=== PATIENT | male | born 1980 | race Caucasian/White ===

== ENCOUNTER 2017-01-20 21:55 | Emergency (ER) | payer BC ==
[2017-01-20] MEDS ORDERED: Acetaminophen/HYDROcodone 325-10 MG Tab PO ONE (21:58)
[2017-01-20] MEDS ORDERED: Indomethacin 25 MG Cap PO ONE (22:03)
--- NOTE | 2017-01-20 22:04 | EDM.PDOC ---
ED HPI Trauma - General Chief Complaint: Lower Extremity Injury/Pain Stated Complaint: PT HAS GOUT Time Seen by Provider: 01/20/17 21:58 - History of Present Illness INITIAL COMMENTS - FREE TEXT/NARRATIVE: HISTORY AND PHYSICAL: History of present illness: Patient 36-year-old white male history of gouty arthritis who presents with chief complaint of flare up he did initiate colchicine with no improvement in 24 hours he denies fever chills nausea vomiting or other concerns Review of systems: As per history of present illness and below otherwise all systems reviewed and negative. Past medical history: As per history of present illness and as reviewed below otherwise noncontributory. Surgical history: As per history of present illness and as reviewed below otherwise noncontributory. Social history: No reported history of drug or alcohol abuse. Family history: As per history of present illness and as reviewed below otherwise noncontributory. Physical exam: HEENT: Atraumatic, normocephalic, pupils reactive, negative for conjunctival pallor or scleral icterus, mucous membranes moist, throat clear, neck supple, nontender, trachea midline. Lungs: Clear to auscultation, breath sounds equal bilaterally, chest nontender. Heart: S1S2, regular, negative for clicks, rubs, or JVD. Abdomen: Soft, nondistended, nontender. Negative for masses or hepatosplenomegaly. Negative for costovertebral tenderness. Pelvis: Stable nontender. Genitourinary: Deferred. Rectal: Deferred. Extremities: Exquisite tenderness of the first digit of the right foot warmth and swelling noted consistent with gouty arthritis he must neurovascular unremarkable Neuro: Awake, alert, oriented. Cranial nerves II through XII unremarkable. Cerebellum unremarkable. Motor and sensory unremarkable throughout. Exam nonfocal. Diagnostics: Deferred Therapeutics: Hydrocodone 10 mg by mouth Impression: #1 acute gouty arthritis with acute exacerbation Definitive disposition and diagnosis as appropriate pending reevaluation and review of above. Allergies/ADRs: Allergies No Known Allergies Allergy (Verified 09/14/16 05:04) Home Medications: Ambulatory Orders Citalopram [Citalopram HBr] 1 tab PO DAILY 02/06/15 [Confirmed 09/14/16] Febuxostat [Uloric] 1 tab PO DAILY 02/06/15 [Confirmed 09/14/16] Colchicine 0.6 mg PO ASDIRECTED #60 capsule 09/14/16 Past Medical History Psychiatric History: Reports: Anxiety - Infectious Disease History Infectious Disease History: Reports: Chicken pox - Past Surgical History Other Musculoskeletal Surgeries/Procedures:: gout Social & Family History - Family History Family Medical History: Noncontributory - Tobacco Use Smoking Status *Q: Current Every Day Smoker Years of Tobacco use: 19 Packs/Tins Daily: 0.3 Second Hand Smoke Exposure: No - Caffeine Use Caffeine Use: Reports: Coffee - Alcohol Use Days Per Week of Alcohol Use: 0 - Recreational Drug Use Recreational Drug Use: No Review of Systems - Review of Systems Review Of Systems: ROS reveals no pertinent complaints other than HPI. Trauma Exam - Physical Exam Exam: See Below (See dictation) Departure - Departure Time of Disposition: 22:02 Disposition: Home, Self-Care 01 Condition: good Clinical Impression: Gouty arthropathy, Acute gouty arthritis Forms: ED Department Discharge Additional Instructions: The following information is given to patients seen in the emergency department who are being discharged to home. This information is to outline your options for follow-up care. We provide all patients seen in our emergency department with a follow-up referral. The need for follow-up, as well as the timing and circumstances, are variable depending upon the specifics of your emergency department visit. If you don't have a primary care physician on staff, we will provide you with a referral. We always advise you to contact your personal physician following an emergency department visit to inform them of the circumstance of the visit and for follow-up with them and/or the need for any referrals to a consulting specialist. The emergency department will also refer you to a specialist when appropriate. This referral assures that you have the opportunity for followup care with a specialist. All of these measure are taken in an effort to provide you with optimal care, which includes your followup. Under all circumstances we always encourage you to contact your private physician who remains a resource for coordinating your care. When calling for followup care, please make the office aware that this follow-up is from your recent emergency room visit. If for any reason you are refused follow-up, please contact the [facility] emergency department at and asked to speak to the emergency department charge nurse. Hydrocodone Indocin as prescribed follow up primary medical doctor as discussed 24-48 hours return as needed as discussed
[2017-01-20 22:11] VITALS: BP 154/75
== END 2017-01-20 22:23 | disposition home or self-care (01) ==
LOC: MW.ED 21:55
DX: M10.9 Gout, unspecified (principal); F41.9 Anxiety disorder, unspecified; F17.210 Nicotine dependence, cigarettes, uncomplicated
CPT/HCPCS: 99283; A9270

== ENCOUNTER 2018-07-15 09:23 | Emergency (ER) | payer BC ==
[2018-07-15 09:37] VITALS: BP 148/88
[2018-07-15] MEDS ORDERED: Ketorolac 60 MG/2 ML SDV IM ONE (09:44)
[2018-07-15] MEDS ORDERED: methylPREDNISolone Sodium Succinate 125 MG/2 ML SDV IVPUSH ONE (09:44)
--- NOTE | 2018-07-15 09:46 | EDM.PDOC ---
ED HPI GENERAL MEDICAL PROBLEM - General Chief Complaint: Upper Extremity Injury/Pain Stated Complaint: PT SPOKE TO NURSE Time Seen by Provider: 07/15/18 09:44 Source of Information: Reports: Patient - History of Present Illness INITIAL COMMENTS - FREE TEXT/NARRATIVE: HISTORY AND PHYSICAL: History of present illness: []Patient with history of gout presents with right elbow pain, he was out of allopurinol and as ran out of colchicine as well as prednisone He generally follows with nor does he but was unable to obtain an appointment for several weeks No fever nausea vomiting chills sweats no redness warmth or drainage no trauma or injury to the elbow Review of systems: As per history of present illness and below otherwise all systems reviewed and negative. Past medical history: As per history of present illness and as reviewed below otherwise noncontributory. Surgical history: As per history of present illness and as reviewed below otherwise noncontributory. Social history: No reported history of drug or alcohol abuse. Family history: As per history of present illness and as reviewed below otherwise noncontributory. Physical exam: HEENT: Atraumatic, normocephalic, pupils reactive, negative for conjunctival pallor or scleral icterus, mucous membranes moist, throat clear, neck supple, nontender, trachea midline. Lungs: Clear to auscultation, breath sounds equal bilaterally, chest nontender. Heart: S1S2, regular, negative for clicks, rubs, or JVD. Abdomen: Soft, nondistended, nontender. Negative for masses or hepatosplenomegaly. Negative for costovertebral tenderness. Pelvis: Stable nontender. Genitourinary: Deferred. Rectal: Deferred. Extremities: Atraumatic, negative for cords or calf pain. Neurovascular unremarkable. Neuro: Awake, alert, oriented. Cranial nerves II through XII unremarkable. Cerebellum unremarkable. Motor and sensory unremarkable throughout. Exam nonfocal. Diagnostics: [CBC uric acid ] Therapeutics: [Toradol 60 IM Solu-Medrol 125 mg IM Colchicine indomethacin Medrol Dosepak ] Impression: [ acute gout ] Definitive disposition and diagnosis as appropriate pending reevaluation and review of above. right arm Pain Score (Numeric/FACES): 8 - Related Data Allergies Allergy/AdvReac Type Severity Reaction Status Date / Time No Known Allergies Allergy Verified 07/15/18 09:35 Home Meds: Home Meds Colchicine 0.6 mg PO ASDIRECTED #60 capsule 09/14/16 [Rx] Allopurinol [Zyloprim] 300 mg PO DAILY 05/27/18 [History] Amoxicillin 500 mg PO TID 05/27/18 [History] Hydrocodone/Acetaminophen [[place] 7.5-325 Tablet] 1 each PO Q4HR PRN #20 tablet 05/27/18 [Rx] Lisinopril 0 mg PO DAILY 05/27/18 [History] metroNIDAZOLE [Flagyl] 500 mg PO TID 05/27/18 [History] Past Medical History - Past Health History Medical/Surgical History: Denies Medical/Surgical History HEENT History: Reports: Impaired Vision, Other (See Below) Other HEENT History: with eyeglasses Cardiovascular History: Reports: Hypertension Musculoskeletal History: Reports: Gout Psychiatric History: Reports: Anxiety - Infectious Disease History Infectious Disease History: Reports: None - Past Surgical History Cardiovascular Surgical History: Reports: None Musculoskeletal Surgical History: Reports: Carpal Tunnel Social & Family History - Family History Family Medical History: Noncontributory - Tobacco Use Smoking Status *Q: Current Every Day Smoker Years of Tobacco use: 21 Packs/Tins Daily: 0.5 - Caffeine Use Caffeine Use: Reports: Coffee, Soda - Alcohol Use Days Per Week of Alcohol Use: 1 Number of Drinks Per Day: 1 Total Drinks Per Week: 1 - Recreational Drug Use Recreational Drug Use: No Review of Systems - Review of Systems Review Of Systems: See Below ED EXAM, GENERAL - Physical Exam Exam: See Below Course - Vital Signs Last Recorded V/S: Last Vital Signs Temp 98.6 F 07/15/18 09:35 Pulse 83 07/15/18 09:35 Resp 20 07/15/18 09:35 BP 148/88 H 07/15/18 09:35 Pulse Ox 98 07/15/18 09:35 - Orders/Labs/Meds Labs: Laboratory Tests 07/15/18 07/15/18 Range/Units 09:40 09:40 WBC 10.94 (4.0-11.0) K/uL RBC 5.17 (4.50-5.90) M/uL Hgb 14.9 (13.0-17.0) g/dL Hct 44.4 (38.0-50.0) % MCV 85.9 (80.0-98.0) fL MCH 28.8 (27.0-32.0) pg MCHC 33.6 (31.0-37.0) g/dL RDW Std Deviation 42.1 (28.0-62.0) fl RDW Coeff of Jenise 13 (11.0-15.0) % Plt Count 276 (150-400) K/uL MPV 10.10 (7.40-12.00) fL Neut % (Auto) 67.3 (48.0-80.0) % Lymph % (Auto) 19.5 (16.0-40.0) % Johnson % (Auto) 10.0 (0.0-15.0) % Eos % (Auto) 2.7 (0.0-7.0) % Baso % (Auto) 0.5 (0.0-1.5) % Neut # (Auto) 7.4 H (1.4-5.7) K/uL Lymph # (Auto) 2.1 (0.6-2.4) K/uL Johnson # (Auto) 1.1 H (0.0-0.8) K/uL Eos # (Auto) 0.3 (0.0-0.7) K/uL Baso # (Auto) 0.1 (0.0-0.1) K/uL Nucleated RBC % 0.0 /100WBC Nucleated RBCs # 0 K/uL Uric Acid 8.5 H (2.6-7.2) mg/dL Meds: Medications Discontinued Medications Generic Name Dose Route Start Last Admin Trade Name Freq PRN Reason Stop Dose Admin Ketorolac Tromethamine 60 mg 07/15/18 09:44 07/15/18 09:52 Toradol IM 07/15/18 09:45 60 mg ONETIME ONE Administration Methylprednisolone Sodium Succinate 125 mg 07/15/18 09:44 07/15/18 09:54 Solu-Medrol IVPUSH 07/15/18 09:45 Not Given ONETIME ONE Methylprednisolone Sodium Succinate 125 mg 07/15/18 09:47 07/15/18 09:53 Solu-Medrol IM 07/15/18 09:48 125 mg ONETIME ONE Administration Departure - Departure Time of Disposition: 10:07 Disposition: Home, Self-Care 01 Condition: Good Clinical Impression: Acute gout Qualifiers: Gout site: ankle Encounter type: sequela Laterality: right - Discharge Information Referrals: PCP,None [Primary Care Provider] - Forms: ED Department Discharge Additional Instructions: The following information is given to patients seen in the emergency department who are being discharged to home. This information is to outline your options for follow-up care. We provide all patients seen in our emergency department with a follow-up referral. The need for follow-up, as well as the timing and circumstances, are variable depending upon the specifics of your emergency department visit. If you don't have a primary care physician on staff, we will provide you with a referral. We always advise you to contact your personal physician following an emergency department visit to inform them of the circumstance of the visit and for follow-up with them and/or the need for any referrals to a consulting specialist. The emergency department will also refer you to a specialist when appropriate. This referral assures that you have the opportunity for follow-up care with a specialist. All of these measure are taken in an effort to provide you with optimal care, which includes your follow-up. Under all circumstances we always encourage you to contact your private physician who remains a resource for coordinating your care. When calling for follow-up care, please make the office aware that this follow-up is from your recent emergency room visit. If for any reason you are refused follow-up, please contact the [facility] emergency department at and asked to speak to the emergency department charge nurse.
[2018-07-15] MEDS ORDERED: methylPREDNISolone Sodium Succinate 125 MG/2 ML SDV IM ONE (09:47)
== END 2018-07-15 10:13 | disposition home or self-care (01) ==
LOC: MW.ED 09:23
DX: M10.9 Gout, unspecified (principal); F17.210 Nicotine dependence, cigarettes, uncomplicated; I10 Essential (primary) hypertension; F41.9 Anxiety disorder, unspecified; Z79.899 Other long term (current) drug therapy
CPT/HCPCS: 36415; 84550; 85025; 96372; 99283; J1885; J2930

== ENCOUNTER 2018-12-06 20:45 | Emergency (ER) | payer BC ==
[2018-12-06 21:18] VITALS: BP 134/69
[2018-12-06] MEDS ORDERED: Ketorolac 60 MG/2 ML SDV IM ONE (21:22)
[2018-12-06] MEDS ORDERED: methylPREDNISolone Sodium Succinate 125 MG/2 ML SDV IVPUSH ONE (21:22)
--- NOTE | 2018-12-06 21:25 | EDM.PDOC ---
ED HPI GENERAL MEDICAL PROBLEM - General Chief Complaint: Lower Extremity Injury/Pain Stated Complaint: GOUT Time Seen by Provider: 12/06/18 21:22 Source of Information: Reports: Patient History Limitations: Reports: No Limitations - History of Present Illness INITIAL COMMENTS - FREE TEXT/NARRATIVE: HISTORY AND PHYSICAL: History of present illness: Patient is a 38-year-old male here with complaint of gout attack. He states he' s had a gout flare in his right ankle for some time and has not been taking his allopurinol due to the current flare. He states recently moved into his right great toe. He has not had any colchicine to take. He sees Dr. Fuller at [place]. He denies injury, trauma, fevers, or chills. Review of systems: As per history of present illness and below otherwise all systems reviewed and negative. Past medical history: As per history of present illness and as reviewed below otherwise noncontributory. Surgical history: As per history of present illness and as reviewed below otherwise noncontributory. Social history: No reported history of drug or alcohol abuse. Family history: As per history of present illness and as reviewed below otherwise noncontributory. Physical exam: General: Patient sitting comfortably in no acute distress and nontoxic appearing HEENT: Atraumatic, normocephalic, pupils reactive, negative for conjunctival pallor or scleral icterus, mucous membranes moist, throat clear, neck supple, nontender, trachea midline. No meningeal signs. Lungs: Clear to auscultation, breath sounds equal bilaterally, chest nontender. Heart: S1S2, regular, negative for clicks, rubs, or overt murmur. Abdomen: Soft, nondistended, nontender. Negative for masses or hepatosplenomegaly. Negative for costovertebral tenderness. Pelvis: Stable nontender. Genitourinary: Deferred. Rectal: Deferred. Extremities: Right great MCP is erythematous and swollen with warmth to touch. Atraumatic, negative for cords or calf pain. Neurovascular unremarkable. Neuro: Awake, alert, oriented. Cranial nerves II through XII unremarkable. Cerebellum unremarkable. Motor and sensory unremarkable throughout. Exam nonfocal. Notes: Diagnostics: None Therapeutics: Solumedrol 125mg IM Toradol 60mg IM Prescriptions: Colchicine Medrol dosepak Impression: Acute gouty arthritis Plan: 1. Take medications as instructed 2. Follow up with primary care provider 3. Return to ED as needed as discussed Definitive disposition and diagnosis as appropriate pending reevaluation and review of above. Right Foot Pain Score (Numeric/FACES): 10 - Related Data Allergies Allergy/AdvReac Type Severity Reaction Status Date / Time No Known Allergies Allergy Verified 12/06/18 21:13 Home Meds: Home Meds Colchicine 0.6 mg PO TID 2 Days #6 capsule 12/06/18 [Rx] Losartan [Cozaar] 25 mg PO DAILY 12/06/18 [History] Meloxicam 1 tab PO DAILY 12/06/18 [History] buPROPion [Wellbutrin] 1 tab PO DAILY 12/06/18 [History] methylPREDNISolone [Medrol] 4 mg PO ASDIRECTED #1 tab.ds.pk 12/06/18 [Rx] Past Medical History - Past Health History Medical/Surgical History: Denies Medical/Surgical History HEENT History: Reports: Impaired Vision, Other (See Below) Other HEENT History: with eyeglasses Cardiovascular History: Reports: Hypertension Musculoskeletal History: Reports: Gout Psychiatric History: Reports: Anxiety - Infectious Disease History Infectious Disease History: Reports: None - Past Surgical History Cardiovascular Surgical History: Reports: None Musculoskeletal Surgical History: Reports: Carpal Tunnel Social & Family History - Family History Family Medical History: Noncontributory - Caffeine Use Caffeine Use: Reports: Coffee, Soda Review of Systems - Review of Systems Review Of Systems: ROS reveals no pertinent complaints other than HPI. ED EXAM, GENERAL - Physical Exam Exam: See Below (see dictation) Course - Vital Signs Last Recorded V/S: Last Vital Signs Temp 98.9 F 12/06/18 21:15 Pulse 98 12/06/18 21:15 Resp 16 12/06/18 21:15 BP 134/69 12/06/18 21:15 Pulse Ox 98 12/06/18 21:15 - Orders/Labs/Meds Meds: Medications Discontinued Medications Generic Name Dose Route Start Last Admin Trade Name Freq PRN Reason Stop Dose Admin Ketorolac Tromethamine 60 mg 12/06/18 21:22 Toradol IM 12/06/18 21:23 ONETIME ONE Methylprednisolone Sodium Succinate 125 mg 12/06/18 21:22 Solu-Medrol IVPUSH 12/06/18 21:23 ONETIME ONE Departure - Departure Time of Disposition: 21:29 Disposition: Home, Self-Care 01 Condition: Good Clinical Impression: Acute gout Qualifiers: Gout site: ankle Encounter type: initial encounter Laterality: right - Discharge Information Referrals: Brittanie Fuller DO [Primary Care Provider] - Forms: ED Department Discharge Additional Instructions: The following information is given to patients seen in the emergency department who are being discharged to home. This information is to outline your options for follow-up care. We provide all patients seen in our emergency department with a follow-up referral. The need for follow-up, as well as the timing and circumstances, are variable depending upon the specifics of your emergency department visit. If you don't have a primary care physician on staff, we will provide you with a referral. We always advise you to contact your personal physician following an emergency department visit to inform them of the circumstance of the visit and for follow-up with them and/or the need for any referrals to a consulting specialist. The emergency department will also refer you to a specialist when appropriate. This referral assures that you have the opportunity for follow-up care with a specialist. All of these measure are taken in an effort to provide you with optimal care, which includes your follow-up. Under all circumstances we always encourage you to contact your private physician who remains a resource for coordinating your care. When calling for follow-up care, please make the office aware that this follow-up is from your recent emergency room visit. If for any reason you are refused follow-up, please contact the [facility] Emergency Department at and asked to speak to the emergency department charge nurse. [address] [address] 1. Take medications as instructed 2. Follow up with primary care provider 3. Return to ED as needed as discussed
[2018-12-06] MEDS ORDERED: methylPREDNISolone Sodium Succinate 125 MG/2 ML SDV IM ONE (21:58)
== END 2018-12-06 22:15 | disposition home or self-care (01) ==
LOC: MW.ED 20:45
DX: M10.9 Gout, unspecified (principal); I10 Essential (primary) hypertension; F17.210 Nicotine dependence, cigarettes, uncomplicated; Z79.899 Other long term (current) drug therapy
CPT/HCPCS: 96372; 99283; J1885; J2930

== ENCOUNTER 2018-12-14 22:02 | Emergency (ER) | payer BC ==
[2018-12-14] MEDS ORDERED: Acetaminophen/HYDROcodone 325-10 MG Tab PO ONE (22:22)
--- NOTE | 2018-12-14 22:36 | EDM.PDOC ---
ED HPI GENERAL MEDICAL PROBLEM - General Chief Complaint: Lower Extremity Injury/Pain Stated Complaint: PT HAS GOUT Time Seen by Provider: 12/14/18 22:19 - History of Present Illness INITIAL COMMENTS - FREE TEXT/NARRATIVE: HISTORY AND PHYSICAL: History of present illness: Patient is a 38-year-old white male with history of gouty arthritis has been seen in the emergency department multiple times was been followed in the past by rheumatology and presents with a concern of acute gouty flare involves both his knees and his inferior extremity. There's been no fever chills nausea vomiting or other complaints Review of systems: As per history of present illness and below otherwise all systems reviewed and negative. Past medical history: As per history of present illness and as reviewed below otherwise noncontributory. Surgical history: As per history of present illness and as reviewed below otherwise noncontributory. Social history: No reported history of drug or alcohol abuse. Family history: As per history of present illness and as reviewed below otherwise noncontributory. Physical exam: HEENT: Atraumatic, normocephalic, pupils reactive, negative for conjunctival pallor or scleral icterus, mucous membranes moist, throat clear, neck supple, nontender, trachea midline. Lungs: Clear to auscultation, breath sounds equal bilaterally, chest nontender. Heart: S1S2, regular, negative for clicks, rubs, or JVD. Abdomen: Soft, nondistended, nontender. Negative for masses or hepatosplenomegaly. Negative for costovertebral tenderness. Pelvis: Stable nontender. Genitourinary: Deferred. Rectal: Deferred. Extremities: Patient has pain slight warmth of his knees bilaterally and his feet bilaterally neurovascular exam is unremarkable Neuro: Awake, alert, oriented. Cranial nerves II through XII unremarkable. Cerebellum unremarkable. Motor and sensory unremarkable throughout. Exam nonfocal. Diagnostics: Deferred Therapeutics: Hydrocodone 10 mg by mouth Impression: #1 acute gouty arthritis Definitive disposition and diagnosis as appropriate pending reevaluation and review of above. bilateral feet Pain Score (Numeric/FACES): 10 - Related Data Allergies Allergy/AdvReac Type Severity Reaction Status Date / Time No Known Allergies Allergy Verified 12/14/18 22:16 Home Meds: Home Meds Losartan [Cozaar] 25 mg PO DAILY 12/06/18 [History] Meloxicam 1 tab PO DAILY 12/06/18 [History] buPROPion [Wellbutrin] 1 tab PO DAILY 12/06/18 [History] Past Medical History - Past Health History Medical/Surgical History: Denies Medical/Surgical History HEENT History: Reports: Impaired Vision, Other (See Below) Other HEENT History: with eyeglasses Cardiovascular History: Reports: Hypertension Musculoskeletal History: Reports: Gout Psychiatric History: Reports: Anxiety - Infectious Disease History Infectious Disease History: Reports: None - Past Surgical History Cardiovascular Surgical History: Reports: None Musculoskeletal Surgical History: Reports: Carpal Tunnel Social & Family History - Family History Family Medical History: Noncontributory - Tobacco Use Smoking Status *Q: Never Smoker - Caffeine Use Caffeine Use: Reports: Coffee, Soda - Recreational Drug Use Recreational Drug Use: No Review of Systems - Review of Systems Review Of Systems: ROS reveals no pertinent complaints other than HPI. ED EXAM, GENERAL - Physical Exam Exam: See Below (See dictation) Course - Vital Signs Last Recorded V/S: Last Vital Signs Temp 36.1 C 12/14/18 22:02 Pulse 107 H 12/14/18 22:02 Resp 18 12/14/18 22:02 BP 176/98 H 12/14/18 22:02 Pulse Ox 97 12/14/18 22:02 - Orders/Labs/Meds Meds: Medications Discontinued Medications Generic Name Dose Route Start Last Admin Trade Name Mag PRN Reason Stop Dose Admin Hydrocodone Bitart/Acetaminophen 1 tab 12/14/18 22:22 12/14/18 22:31 [place] 325-10 Mg PO 12/14/18 22:23 1 tab ONETIME ONE Administration Departure - Departure Time of Disposition: 22:35 Disposition: Home, Self-Care 01 Condition: Good Clinical Impression: Gouty arthritis - Discharge Information Additional Instructions: The following information is given to patients seen in the emergency department who are being discharged to home. This information is to outline your options for follow-up care. We provide all patients seen in our emergency department with a follow-up referral. The need for follow-up, as well as the timing and circumstances, are variable depending upon the specifics of your emergency department visit. If you don't have a primary care physician on staff, we will provide you with a referral. We always advise you to contact your personal physician following an emergency department visit to inform them of the circumstance of the visit and for follow-up with them and/or the need for any referrals to a consulting specialist. The emergency department will also refer you to a specialist when appropriate. This referral assures that you have the opportunity for followup care with a specialist. All of these measure are taken in an effort to provide you with optimal care, which includes your followup. Under all circumstances we always encourage you to contact your private physician who remains a resource for coordinating your care. When calling for followup care, please make the office aware that this follow-up is from your recent emergency room visit. If for any reason you are refused follow-up, please contact the [facility] emergency department at and asked to speak to the emergency department charge nurse. Indomethacin Ultram as prescribed follow-up primary medical doctor diet as directed return as needed as discussed
[2018-12-14 23:02] VITALS: BP 173/86
== END 2018-12-14 23:00 | disposition home or self-care (01) ==
LOC: MW.ED 22:02
DX: M10.9 Gout, unspecified (principal); I10 Essential (primary) hypertension; Z79.899 Other long term (current) drug therapy
CPT/HCPCS: 99283; A9270

== ENCOUNTER 2019-02-14 10:07 | Emergency (ER) | payer BC ==
[2019-02-14 10:32] VITALS: BP 134/71
[2019-02-14] MEDS ORDERED: methylPREDNISolone Sodium Succinate 125 MG/2 ML SDV IM ONE (10:33)
[2019-02-14] MEDS ORDERED: Ketorolac 60 MG/2 ML SDV IM ONE (10:33)
--- NOTE | 2019-02-14 10:39 | EDM.PDOC ---
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 There's been no fever chills nausea vomiting or other complaints Review of systems: As per history of present illness and below otherwise all systems reviewed and negative. Past medical history: As per history of present illness and as reviewed below otherwise noncontributory. Surgical history: As per history of present illness and as reviewed below otherwise noncontributory. Social history: No reported history of drug or alcohol abuse. Family history: As per history of present illness and as reviewed below otherwise noncontributory. Physical exam: HEENT: Atraumatic, normocephalic, pupils reactive, negative for conjunctival pallor or scleral icterus, mucous membranes moist, throat clear, neck supple, nontender, trachea midline. Lungs: Clear to auscultation, breath sounds equal bilaterally, chest nontender. Heart: S1S2, regular, negative for clicks, rubs, or JVD. Abdomen: Soft, nondistended, nontender. Negative for masses or hepatosplenomegaly. Negative for costovertebral tenderness. Pelvis: Stable nontender. Genitourinary: Deferred. Rectal: Deferred. Extremities: Bilateral knees with warmth and swelling tenderness similar to prior visits patient is well-known to me neurovascular exam is unremarkable Neuro: Awake, alert, oriented. Cranial nerves II through XII unremarkable. Cerebellum unremarkable. Motor and sensory unremarkable throughout. Exam nonfocal. Diagnostics: None Therapeutics: Toradol 60 mg IM Solu-Medrol 125 IM Impression: #1 acute gouty arthritis #2 medical noncompliance Definitive disposition and diagnosis as appropriate pending reevaluation and review of above. joints Pain Score (Numeric/FACES): 7 - Related Data Allergies Allergy/AdvReac Type Severity Reaction Status Date / Time No Known Allergies Allergy Verified 12/14/18 22:16 Home Meds: Home Meds Losartan [Cozaar] 25 mg PO DAILY 12/06/18 [History] Meloxicam 1 tab PO DAILY 12/06/18 [History] buPROPion [Wellbutrin] 1 tab PO DAILY 12/06/18 [History] Past Medical History - Past Health History Medical/Surgical History: Denies Medical/Surgical History HEENT History: Reports: Impaired Vision, Other (See Below) Other HEENT History: with eyeglasses Cardiovascular History: Reports: Hypertension Musculoskeletal History: Reports: Gout Psychiatric History: Reports: Anxiety - Infectious Disease History Infectious Disease History: Reports: None - Past Surgical History Cardiovascular Surgical History: Reports: None Musculoskeletal Surgical History: Reports: Carpal Tunnel Social & Family History - Family History Family Medical History: Noncontributory - Caffeine Use Caffeine Use: Reports: Coffee, Soda Review of Systems - Review of Systems Review Of Systems: ROS reveals no pertinent complaints other than HPI. ED EXAM, GENERAL - Physical Exam Exam: See Below (See dictation) Course - Vital Signs Last Recorded V/S: Last Vital Signs Temp 36.1 C 02/14/19 10:32 Pulse 88 02/14/19 10:32 Resp 18 02/14/19 10:32 BP 134/71 02/14/19 10:32 Pulse Ox 95 02/14/19 10:32 Departure - Departure Time of Disposition: 10:38 Disposition: Home, Self-Care 01 Condition: Good Clinical Impression: Acute gouty arthritis, Medical non-compliance - Discharge Information Referrals: PCP,Unknown [Primary Care Provider] - Additional Instructions: The following information is given to patients seen in the emergency department who are being discharged to home. This information is to outline your options for follow-up care. We provide all patients seen in our emergency department with a follow-up referral. The need for follow-up, as well as the timing and circumstances, are variable depending upon the specifics of your emergency department visit. If you don't have a primary care physician on staff, we will provide you with a referral. We always advise you to contact your personal physician following an emergency department visit to inform them of the circumstance of the visit and for follow-up with them and/or the need for any referrals to a consulting specialist. The emergency department will also refer you to a specialist when appropriate. This referral assures that you have the opportunity for followup care with a specialist. All of these measure are taken in an effort to provide you with optimal care, which includes your followup. Under all circumstances we always encourage you to contact your private physician who remains a resource for coordinating your care. When calling for followup care, please make the office aware that this follow-up is from your recent emergency room visit. If for any reason you are refused follow-up, please contact the [facility] emergency department at and asked to speak to the emergency department charge nurse. Medications as prescribed follow-up primary medical doctor/rheumatology return as needed as discussed
== END 2019-02-14 11:11 | disposition home or self-care (01) ==
LOC: MW.ED 10:07
DX: M10.9 Gout, unspecified (principal); I10 Essential (primary) hypertension; Z91.14 Patient's other noncompliance with medication regimen; Z79.899 Other long term (current) drug therapy
CPT/HCPCS: 96372; 99283; J1885; J2930

== ENCOUNTER 2020-07-25 05:35 | Emergency (ER) | payer BC ==
[2020-07-25 05:52] VITALS: BP 143/77; PULSE 84
[2020-07-25] MEDS ORDERED: methylPREDNISolone Sodium Succinate 125 MG/2 ML SDV IM ONE (06:08)
[2020-07-25] MEDS ORDERED: Ketorolac 30 MG/ML SDV IM ONE (06:09)
--- NOTE | 2020-07-25 06:13 | EDM.PDOC ---
ED HPI GENERAL MEDICAL PROBLEM - General Chief Complaint: Lower Extremity Injury/Pain Stated Complaint: GOUT IN LT FOOT Time Seen by Provider: 07/25/20 05:57 - History of Present Illness INITIAL COMMENTS - FREE TEXT/NARRATIVE: History of present illness: [] Patient has gout. He started colchicine yesterday because of pain in his ankle. The patient continues to have more pain now. He comes in periodically with breakthrough pain and when he does that he gets a shot of Solu-Medrol 125 mg and ketorolac IM and then this helps him and he does well with his colchicine and i Purinol. Review of systems: As per history of present illness and below otherwise all systems reviewed and negative. Past medical history: As per history of present illness and as reviewed below otherwise noncontributory. Surgical history: As per history of present illness and as reviewed below otherwise noncontributory. Social history: No reported history of drug or alcohol abuse. Family history: As per history of present illness and as reviewed below otherwise noncontributory. Physical exam: Constitutional - well developed, well-nourished and in no acute distress HEENT - normocephalic, no evidence of trauma - external nose and mouth normal - no mass in neck and no JVD - mucosae moist EYES - full EOM, PERRL, no icterus - no evidence of inflammation, injection, or drainage Respiratory - no respiratory distress, equal bilateral expansion Musculoskeletal tenderness in left ankle but no redness or inflammation externally. Otherwise no gross deformity of long bones or joints - no tenderness, swelling or edema Neurologic - Alert and oriented times four - CN II-XII grossly intact - motor sensory and coordination symmetrically normal Psychiatric - appropriate mood and affect with normal thought content Hematologic - No petechiae or purpura - mucosa appropriate color and sclera not pale - normal nail bed color and refill Integument - no rash or evidence of trauma - normal turgor Diagnostics: [] Therapeutics: [] Impression: [] Plan: [] Definitive disposition and diagnosis as appropriate pending reevaluation and review of above. left foot Pain Score (Numeric/FACES): 7 - Related Data Allergies Allergy/AdvReac Type Severity Reaction Status Date / Time No Known Allergies Allergy Verified 07/25/20 05:48 Home Meds: Home Meds Losartan [Cozaar] 25 mg PO DAILY 12/06/18 [History] Meloxicam 1 tab PO DAILY 12/06/18 [History] Allopurinol [Zyloprim] 100 mg PO DAILY 02/14/19 [History] Colchicine 0.6 mg PO DAILY 02/14/19 [History] risperiDONE [Risperdal] 0.25 mg PO BEDTIME 02/14/19 [History] Past Medical History - Past Health History Medical/Surgical History: Denies Medical/Surgical History HEENT History: Reports: Impaired Vision, Other (See Below) Other HEENT History: with eyeglasses Cardiovascular History: Reports: Hypertension Respiratory History: Reports: None Gastrointestinal History: Reports: None Genitourinary History: Reports: None Musculoskeletal History: Reports: Gout Neurological History: Reports: None Psychiatric History: Reports: Anxiety Endocrine/Metabolic History: Reports: None Insulin Pump Model and Industrial Economics Teacher: None Hematologic History: Reports: None Immunologic History: Reports: None Oncologic (Cancer) History: Reports: None Dermatologic History: Reports: None - Infectious Disease History Infectious Disease History: Reports: Chicken Pox - Past Surgical History Cardiovascular Surgical History: Reports: None Musculoskeletal Surgical History: Reports: Carpal Tunnel Social & Family History - Family History Family Medical History: Noncontributory - Tobacco Use Years of Tobacco use: 15 Packs/Tins Daily: 0.2 - Caffeine Use Caffeine Use: Reports: Coffee, Energy Drinks - Recreational Drug Use Recreational Drug Use: No Review of Systems - Review of Systems Review Of Systems: Comprehensive ROS is negative, except as noted in HPI. ED EXAM, GENERAL - Physical Exam Exam: See Below Free Text/Narrative:: My physical exam is in the HPI Course - Vital Signs Last Recorded V/S: Last Vital Signs Temp 96.5 F L 07/25/20 05:49 Pulse 84 07/25/20 05:49 Resp 18 07/25/20 05:49 BP 143/77 H 07/25/20 05:49 Pulse Ox 96 07/25/20 05:49 - Orders/Labs/Meds Meds: Medications Discontinued Medications Generic Name Dose Route Start Last Admin Trade Name Freq PRN Reason Stop Dose Admin Ketorolac Tromethamine 30 mg 07/25/20 06:09 Toradol IM 07/25/20 06:10 ONETIME ONE Methylprednisolone Sodium Succinate 125 mg 07/25/20 06:08 Solu-Medrol IM 07/25/20 06:09 ONETIME ONE Departure - Departure Time of Disposition: 06:30 Disposition: Home, Self-Care 01 Condition: Good Clinical Impression: Gout attack, Gouty arthritis - Discharge Information Referrals: PCP,None [Primary Care Provider] - Forms: ED Department Discharge Additional Instructions: [facility] - Primary Care [address] [place] [address] [facility] [address] [place] [id number] The following information is given to patients seen in the emergency department who are being discharged to home. This information is to outline your options for follow-up care. We provide all patients seen in our emergency department with a follow-up referral. The need for follow-up, as well as the timing and circumstances, are variable depending upon the specifics of your emergency department visit. If you don't have a primary care physician on staff, we will provide you with a referral. We always advise you to contact your personal physician following an emergency department visit to inform them of the circumstance of the visit and for follow-up with them and/or the need for any referrals to a consulting specialist. The emergency department will also refer you to a specialist when appropriate. This referral assures that you have the opportunity for follow-up care with a specialist. All of these measure are taken in an effort to provide you with optimal care, which includes your follow-up. Under all circumstances we always encourage you to contact your private physician who remains a resource for coordinating your care. When calling for follow-up care, please make the office aware that this follow-up is from your recent emergency room visit. If for any reason you are refused follow-up, please contact the [facility] Emergency Department at and asked to speak to the emergency department charge nurse. Sepsis Event Note (ED) - Evaluation Sepsis Screening Result: No Definite Risk - Focused Exam Vital Signs: Vital Signs Temp Pulse Resp BP Pulse Ox 07/25/20 05:49 96.5 F L 84 18 143/77 H 96
== END 2020-07-25 06:35 | disposition home or self-care (01) ==
LOC: MW.ED 05:35
DX: M10.9 Gout, unspecified (principal); I10 Essential (primary) hypertension; F17.210 Nicotine dependence, cigarettes, uncomplicated; Z79.899 Other long term (current) drug therapy
CPT/HCPCS: 96372; 99283; J1885; J2930; 99282

== ENCOUNTER 2021-05-11 09:26 | Emergency (ER) | payer BC ==
[2021-05-11] MEDS ORDERED: Ketorolac 60 MG/2 ML SDV IM ONE (10:07)
[2021-05-11] MEDS ORDERED: methylPREDNISolone Sodium Succinate 125 MG/2 ML SDV IM ONE (10:07)
--- NOTE | 2021-05-11 10:11 | EDM.PDOC ---
ED HPI GENERAL MEDICAL PROBLEM - General Chief Complaint: Lower Extremity Injury/Pain Time Seen by Provider: 05/11/21 09:57 Source of Information: Reports: Patient History Limitations: Reports: No Limitations - History of Present Illness INITIAL COMMENTS - FREE TEXT/NARRATIVE: HISTORY AND PHYSICAL: History of present illness: Patient is a 41-year-old male who presents to the emergency room with complaints of left lateral ankle pain. Patient reports he has a history of gout, since he was a teenager. He states he has colchicine on hand but when the pain is not controlled he typically comes to the emergency room for IM Toradol and Solu- Medrol. He has had the left lateral ankle pain for several days. Denies any injury, trauma or falls. He denies any numbness, tingling, saddle paresthesias. Patient denies any fever, chills, headache, change in vision, syncope or near syncope. Denies any chest pain, back pain, shortness of breath or cough. Denies any abdominal pain, nausea, vomiting, diarrhea, constipation or dysuria. Has not noted any blood in urine or stool. Patient has been eating and drinking appropriately. Review of systems: As per history of present illness and below otherwise all systems reviewed and negative. Past medical history: As per history of present illness and as reviewed below otherwise noncontributory. Surgical history: As per history of present illness and as reviewed below otherwise noncontributory. Social history: See social history for further information Family history: As per history of present illness and as reviewed below otherwise noncontribu tory. Physical exam: General: Well developed and well nourished. Alert and orientated x 3. Nontoxic in appearance and in no acute distress. Vital signs are stable and have been reviewed by me. Nursing notes were reviewed. HEENT: Atraumatic, normocephalic, pupils equal and reactive bilaterally, negative for conjunctival pallor or scleral icterus, mucous membranes moist, TMs normal bilaterally, throat clear, neck supple, nontender, trachea midline. No drooling or trismus noted. No meningeal signs. No hot potato voice noted. Lungs: Clear to auscultation bilaterally. No wheezes, rales, or rhonchi. Chest nontender. Normal work of breathing, no accessory muscles used. Heart: S1S2, regular rate and rhythm without overt murmur, gallops, or rubs. No JVD. No peripheral edema Abdomen: Soft, nondistended, nontender. Skin: Intact, warm, dry. No lesions or rashes noted. Hematologic: No petechiae or purpra. Mucosa appropriate color and normal nail bed color and refill. Extremities: Atraumatic, moves all extremities per self without difficulty or deficits, pain with palpation of the left lateral mallelous, strong pedal and pretibial pulses, negative for cords or calf pain. Cap refill less than 3 seconds. Neurovascular unremarkable. Neuro: Awake, alert, oriented. Cranial nerves II through XII unremarkable. Cerebellum unremarkable. Motor and sensory unremarkable throughout. Exam nonfocal. Psychiatric: Mood and affect are appropriate. Normal thought process. Answering questions appropriately. Notes: *This patient was seen and evaluated during the 2019 SARS-CoV-2 novel coronavirus pandemic period. Community viral transmission is ongoing at time of this encounter and the emergency department is operating under pandemic response procedures. Patient declines wanting any diagnostics done today. He states he has longstanding history of gout and is confident that that is what is causing his pain. He does request IM Toradol and Solu-Medrol which is appropriate. He states he has meloxicam at home, has not yet started taking this medication. I have talked with the patient about today's findings, in addition to providing specific details for plan of care. Reassessment at the time of disposition demonstrates that the patient is in no acute distress. The patient is stable for discharge, counseling was provided and we discussed in great detail signs and symptoms that would prompt them to return to the Emergency Department. Medication, follow up and supportive care measures were reviewed and discussed. Voices understanding and is agreeable to plan of care. Denies any further questions or concerns at this time. Diagnostics: None Therapeutics: Toradol, Solu-Medrol Prescription: Prednisone Impression: Gout, left ankle Plan: 1. You were evaluated today on an emergent basis. You received an injection of Toradol and Solu-Medrol. I have given you a prescription for an oral steroid taper. Take your meloxicam as directed while you are having pain. 2. You can alternate Tylenol and ibuprofen as needed for pain and fever management. 3. We encourage you to follow up with your primary care provider and/or recommended specialist in the next few days for re-evaluation and further care/management. 4. If your symptoms should worsen, new symptoms develop or any of the signs and symptoms we discussed should arise please return to the emergency room or call 911 (if needed). Definitive disposition and diagnosis as appropriate pending reevaluation and review of above. left ankle Pain Score (Numeric/FACES): 3 - Related Data Allergies Allergy/AdvReac Type Severity Reaction Status Date / Time No Known Allergies Allergy Verified 05/11/21 10:25 Home Meds: Home Meds Losartan [Cozaar] 25 mg PO DAILY 12/06/18 [History] Meloxicam 1 tab PO DAILY 12/06/18 [History] Colchicine 0.6 mg PO DAILY PRN 02/14/19 [History] allopurinoL [Zyloprim] 300 mg PO DAILY 02/14/19 [History] risperiDONE [Risperdal] 2 tab PO BEDTIME 02/14/19 [History] Fenofibrate Nanocrystallized [Fenofibrate] 1 tab PO DAILY 05/11/21 [History] Losartan Potassium 100 mg PO DAILY 05/11/21 [History] Past Medical History - Past Health History Medical/Surgical History: Denies Medical/Surgical History HEENT History: Reports: Impaired Vision, Other (See Below) Other HEENT History: with eyeglasses Cardiovascular History: Reports: Hypertension Respiratory History: Reports: None Gastrointestinal History: Reports: None Genitourinary History: Reports: None Musculoskeletal History: Reports: Gout Neurological History: Reports: None Psychiatric History: Reports: Anxiety Endocrine/Metabolic History: Reports: None Insulin Pump Model and Seismographer: None Hematologic History: Reports: None Immunologic History: Reports: None Oncologic (Cancer) History: Reports: None Dermatologic History: Reports: None - Infectious Disease History Infectious Disease History: Reports: Chicken Pox - Past Surgical History Cardiovascular Surgical History: Reports: None Musculoskeletal Surgical History: Reports: Carpal Tunnel Social & Family History - Family History Family Medical History: No Pertinent Family History - Caffeine Use Caffeine Use: Reports: Coffee, Energy Drinks Review of Systems - Review of Systems Review Of Systems: Comprehensive ROS is negative, except as noted in HPI. ED EXAM, GENERAL - Physical Exam Exam: See Below (See dictation) Course - Vital Signs Last Recorded V/S: Last Vital Signs Temp 97 F 05/11/21 10:22 Pulse 79 05/11/21 10:22 Resp 20 07/15/21 10:22 BP 125/87 05/11/21 10:22 Pulse Ox 96 05/11/21 10:22 - Orders/Labs/Meds Meds: Medications Discontinued Medications Generic Name Dose Route Start Last Admin Trade Name Mag PRN Reason Stop Dose Admin Ketorolac Tromethamine 60 mg 05/11/21 10:07 05/11/21 10:17 Ketorolac 60 Mg/2 Ml Sdv IM 05/11/21 10:08 60 mg ONETIME ONE Administration Methylprednisolone Sodium Succinate 125 mg 05/11/21 10:07 05/11/21 10:17 Methylprednisolone Sodium Succinate 125 Mg/2 Ml Sdv IM 05/11/21 10:08 125 mg ONETIME ONE Administration Departure - Departure Time of Disposition: 10:10 Disposition: Home, Self-Care 01 Clinical Impression: Gout Qualifiers: Gout site: ankle Gout etiology: unspecified cause Chronicity: chronic Laterality: left Qualified Code(s): 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 This information is to outline your options for follow-up care. We provide all patients seen in our emergency department with a follow-up referral. The need for follow-up, as well as the timing and circumstances, are variable depending upon the specifics of your emergency department visit. If you don't have a primary care physician on staff, we will provide you with a referral. We always advise you to contact your personal physician following an emergency department visit to inform them of the circumstance of the visit and for follow-up with them and/or the need for any referrals to a consulting specialist. The emergency department will also refer you to a specialist when appropriate. This referral assures that you have the opportunity for follow-up care with a specialist. All of these measure are taken in an effort to provide you with optimal care, which includes your follow-up. Under all circumstances we always encourage you to contact your private physician who remains a resource for coordinating your care. When calling for follow-up care, please make the office aware that this follow-up is from your recent emergency room visit. If for any reason you are refused follow-up, please contact the [facility] Emergency Department at and asked to speak to the emergency department charge nurse. [facility] Primary Care [address] [place] [address] [facility] [address] [place] [id number] Thank you for choosing the [facility] emergency department in [place] for your medical needs today. It was a pleasure caring for you. Today you were seen in the emergency department for gout attack. 1. You were evaluated today on an emergent basis. You received an injection of Toradol and Solu-Medrol. I have given you a prescription for an oral steroid taper. Take your meloxicam as directed while you are having pain. 2. You can alternate Tylenol and ibuprofen as needed for pain and fever management. 3. We encourage you to follow up with your primary care provider and/or recommended specialist in the next few days for re-evaluation and further care/management. 4. If your symptoms should worsen, new symptoms develop or any of the signs and symptoms we discussed should arise please return to the emergency room or call 911 (if needed). Sepsis Event Note (ED) - Focused Exam Vital Signs: Vital Signs Temp Pulse Resp BP Pulse Ox 05/11/21 10:22 97 F 79 20 125/87 96
[2021-05-11 10:25] VITALS: BP 125/87; PULSE 79
== END 2021-05-11 10:37 | disposition home or self-care (01) ==
LOC: MW.ED 09:26
DX: M1A.0720 Idiopathic chronic gout, left ankle and foot, without tophus (tophi) (principal); I10 Essential (primary) hypertension; Z79.899 Other long term (current) drug therapy
CPT/HCPCS: 96372; 99283; J1885; J2930

== ENCOUNTER 2023-04-07 07:42 | Emergency (ER) | payer BC ==
[2023-04-07] MEDS ORDERED: methylPREDNISolone Sodium Succinate 40 MG/1 ML SDV IM ONE (08:56)
[2023-04-07] MEDS ORDERED: Ketorolac 30 MG/ML SDV IM ONE (08:56)
[2023-04-07 09:42] VITALS: BP 173/69; PULSE 67
== END 2023-04-07 10:29 | disposition home or self-care (01) ==
LOC: MW.ED 07:42
DX: M10.9 Gout, unspecified (principal); F17.210 Nicotine dependence, cigarettes, uncomplicated; E66.9 Obesity, unspecified; Z68.41 Body mass index [BMI] 40.0-44.9, adult; I10 Essential (primary) hypertension; Z79.899 Other long term (current) drug therapy
CPT/HCPCS: 96372; 99283; J1885; J2920

== ENCOUNTER 2023-07-05 17:30 | Emergency (ER) | payer OTHER, BC ==
[2023-07-05] MEDS ORDERED: Acetaminophen 325 MG Tab PO ONE (17:53)
[2023-07-05] MEDS ORDERED: diphenhydrAMINE 50 MG/ML SDV IVPUSH ONE (17:53)
[2023-07-05] MEDS ORDERED: LORazepam 2 MG/ML SDV IVPUSH ONE (17:54)
[2023-07-05] MEDS ORDERED: Lidocaine 4% 1 each Patch TOP SCH (18:00)
[2023-07-05] MEDS ORDERED: Lactated Ringers 1,000 ML IV SCH (19:15)
[2023-07-05 19:41] VITALS: BP 148/93; PULSE 70
== END 2023-07-05 19:40 | disposition home or self-care (01) ==
LOC: MW.ED 17:30
DX: R51.9 Headache, unspecified (principal); M54.2 Cervicalgia; I10 Essential (primary) hypertension; Z86.16 Personal history of COVID-19; Z79.899 Other long term (current) drug therapy; V89.2XXA Person injured in unspecified motor-vehicle accident, traffic, initial encounter; Y92.410 Unspecified street and highway as the place of occurrence of the external cause
CPT/HCPCS: 70450; 72125; 96374; 96375; 99284; A9270; J1200; J2060

== ENCOUNTER 2023-08-04 19:53 | Emergency (ER) | payer BC ==
[2023-08-04 20:36] VITALS: BP 163/98
[2023-08-04] MEDS ORDERED: Ketorolac 60 MG/2 ML SDV IM ONE (20:42)
[2023-08-04] MEDS ORDERED: methylPREDNISolone Sodium Succinate 125 MG/2 ML SDV IM ONE (20:42)
[2023-08-04 21:05] VITALS: PULSE 82
== END 2023-08-04 21:04 | disposition home or self-care (01) ==
LOC: MW.ED 19:53
DX: M10.9 Gout, unspecified (principal); I10 Essential (primary) hypertension; E66.9 Obesity, unspecified; Z68.42 Body mass index [BMI] 45.0-49.9, adult; Z86.16 Personal history of COVID-19; Z79.899 Other long term (current) drug therapy
CPT/HCPCS: 96372; 99283; J1885; J2930

== ENCOUNTER 2023-08-07 09:03 | Emergency (ER) | payer BC ==
[2023-08-07] MEDS ORDERED: Sodium Chloride 0.9% 2.5 ML Syringe FLUSH PRN (10:46)
[2023-08-07] MEDS ORDERED: Sodium Chloride 0.9% 10 ML Syringe FLUSH PRN (10:46)
[2023-08-07] MEDS ORDERED: Morphine 4 MG/ML Syringe IVPUSH STA ×2 (10:51→13:02)
[2023-08-07] MEDS ORDERED: Ondansetron 4 MG/2 ML SDV IVPUSH STA (10:51)
[2023-08-07 11:27] LABS: BASOPHILS ABSOLUTE AUTO 0.08 K/uL (0.00-0.20); BASOPHILS PERCENT AUTO 0.9 % (0.0-1.0); EOSINOPHILS ABSOLUTE AUTO 0.23 K/uL (0.00-0.45); EOSINOPHILS PERCENT AUTO 2.5 % (0.0-6.0); HEMATOCRIT 43.4 % (42.0-52.0); HEMOGLOBIN 14.6 g/dL (14.0-18.0); IMMATURE GRAN ABSOLUTE AUTO 0.02 K/uL (0.00-0.05); IMMATURE GRAN PERCENT AUTO 0.2 % (0.0-0.4); LYMPHOCYTES ABSOLUTE AUTO 2.56 K/uL (1.00-4.80); LYMPHOCYTES PERCENT AUTO 27.9 % (24.0-44.0); MEAN CORPUSCULAR HEMOGLOBIN 27.9 pg (28.0-32.0); MEAN CORPUSCULAR HGB CONC 33.6 g/dL (32.0-36.0); MEAN CORPUSCULAR VOLUME 82.8 fL (83.0-99.0); MEAN PLATELET VOLUME 10.2 fL (9.4-12.4); MONOCYTES ABSOLUTE AUTO 0.65 K/uL (0.00-0.80); MONOCYTES PERCENT AUTO 7.1 % (0.0-8.0); NEUTROPHILS ABSOLUTE AUTO 5.7 K/uL (1.8-7.7); NEUTROPHILS PERCENT AUTO 61.4 % (41.0-71.0); PLATELET COUNT,PLT 277 K/uL (150-400); RED BLOOD CELL COUNT 5.24 M/uL (4.52-5.90); WHITE BLOOD CELL COUNT,WBC 9.19 K/uL (3.9-11.3)
[2023-08-07 12:06] LABS: MAGNESIUM 1.7 mg/dL (1.8-2.4); URIC ACID 8.3 mg/dL (2.6-7.2)
[2023-08-07 12:07] LABS: PERCENT FE SATURATION 15.63 % (20-55)
[2023-08-07 12:13] LABS: A/G RATIO 0.9 (0.9-1.6); ALBUMIN 3.5 g/dL (3.4-5.0); BILIRUBIN TOTAL 0.5 mg/dL (0.2-1.0); CALCIUM 9.9 mg/dL (8.5-10.1); CREATININE 0.9 mg/dL (0.8-1.3); EST CRCL DRUG DOSING (CG) 114.96 mL/min; POTASSIUM,K 4.1 mmol/L (3.5-5.1); PROTEIN TOTAL,TP 7.4 g/dL (6.4-8.2)
[2023-08-07 13:23] VITALS: BP 134/78; PULSE 72
== END 2023-08-07 13:31 | disposition home or self-care (01) ==
LOC: MW.ED 09:03
DX: L03.115 Cellulitis of right lower limb (principal); M1A.0710 Idiopathic chronic gout, right ankle and foot, without tophus (tophi); I10 Essential (primary) hypertension; E66.9 Obesity, unspecified; Z68.43 Body mass index [BMI] 50.0-59.9, adult; Z86.16 Personal history of COVID-19; Z87.891 Personal history of nicotine dependence; Z79.899 Other long term (current) drug therapy
CPT/HCPCS: 36415; 73610; 73630; 80053; 83550; 83690; 83735; 84550; 85025; 87040; 96374; 96375; 96376; 99283; J2270; J2405; J3490; 99284

== ENCOUNTER 2023-08-10 12:45 | Emergency (ER) | payer BC ==
[2023-08-10 13:19] VITALS: BP 161/99
[2023-08-10] MEDS ORDERED: oxyCODONE 5 MG/5 ML Cup PO ONE (13:56)
[2023-08-10] MEDS ORDERED: oxyCODONE 5 MG Tab PO ONE (14:01)
[2023-08-10 14:32] VITALS: PULSE 77
== END 2023-08-10 14:32 | disposition home or self-care (01) ==
LOC: MW.ED 12:45
DX: M10.9 Gout, unspecified (principal); I10 Essential (primary) hypertension; E66.9 Obesity, unspecified; Z68.43 Body mass index [BMI] 50.0-59.9, adult; Z86.16 Personal history of COVID-19; Z79.899 Other long term (current) drug therapy
CPT/HCPCS: 99283; A9270

== ENCOUNTER 2023-10-24 21:32 | Emergency (ER) | payer BC ==
[2023-10-24] MEDS ORDERED: methylPREDNISolone Sodium Succinate 125 MG/2 ML SDV IM ONE (22:25)
[2023-10-24] MEDS ORDERED: Ketorolac 30 MG/ML SDV IM ONE (22:25)
[2023-10-24 22:43] VITALS: BP 132/88; PULSE 76
== END 2023-10-24 22:43 | disposition home or self-care (01) ==
LOC: MW.ED 21:32
DX: M10.9 Gout, unspecified (principal); I10 Essential (primary) hypertension; Z86.16 Personal history of COVID-19; Z79.899 Other long term (current) drug therapy
CPT/HCPCS: 96372; 99283; J1885; J2930

== ENCOUNTER 2024-02-12 19:03 | Emergency (ER) | payer BC ==
[2024-02-12] MEDS: methylPREDNISolone Sodium Succinate 125 MG/2 ML SDV IM ONE (19:33)
[2024-02-12] MEDS: Ketorolac 60 MG/2 ML SDV IM ONE (19:36)
[2024-02-12 19:53] VITALS: BP 179/99; PULSE 93
== END 2024-02-12 19:52 | disposition home or self-care (01) ==
LOC: MW.ED 19:03
DX: I10 Essential (primary) hypertension (principal); Z79.899 Other long term (current) drug therapy; Z86.16 Personal history of COVID-19; Z75.8 Other problems related to medical facilities and other health care
CPT/HCPCS: 96372; 99283; J1885; J2930

== ENCOUNTER 2024-07-21 08:10 | Emergency (ER) | payer BC ==
[2024-07-21] MEDS: methylPREDNISolone Sodium Succinate 125 MG/2 ML SDV IM ONE (08:48)
[2024-07-21] MEDS: Ketorolac 30 MG/ML SDV IM ONE (08:48)
[2024-07-21 10:13] VITALS: BP 171/87; PULSE 74
== END 2024-07-21 09:08 | disposition home or self-care (01) ==
LOC: MW.ED 08:10
DX: M10.9 Gout, unspecified (principal); I10 Essential (primary) hypertension; Z86.16 Personal history of COVID-19; Z79.899 Other long term (current) drug therapy; Z75.8 Other problems related to medical facilities and other health care
CPT/HCPCS: 96372; 99283; J1885; J2919

== ENCOUNTER 2025-03-12 01:42 | Emergency (ER) | payer BC ==
[2025-03-12] MEDS: Ketorolac 30 MG/ML SDV IM ONE (02:27)
[2025-03-12] MEDS: methylPREDNISolone Sodium Succinate 40 MG/1 ML SDV IM ONE (02:28)
[2025-03-12 02:43] VITALS: BP 138/73; PULSE 76
== END 2025-03-12 02:43 | disposition home or self-care (01) ==
LOC: MW.ED 01:42
DX: M10.9 Gout, unspecified (principal); I10 Essential (primary) hypertension; Z79.899 Other long term (current) drug therapy
CPT/HCPCS: 96372; 99283; J1885; J2919; 99282